=== PATIENT | male | born 1995 | race Caucasian/White ===

== ENCOUNTER 2021-03-02 19:46 | Emergency (ER) | payer SELFPAY ==
[~2021-03-02] VITALS: Ht 193 cm; Wt 87.5 kg
--- NOTE | 2021-03-02 20:39 | ED Cough/URI ---
General Chief Complaint: Cough/Cold/Flu Symptoms Stated Complaint: COUGH, CONGESTION Nursing Triage Note: TO ED VIA POV AND AMBULATORY TO ROOM 10 WITH C/O COUGH WITH HX OF BRONCHITIS. PT STATES CHILD HAS "COMMON COLD" AND HIS FAMILY WAS TESTED A WEEK AGO FOR COVID AND ALL WERE NEGATIVE. DENIES SOA. STATES HE TOOK DAYQUIL THIS AM. Source: patient Exam Limitations: no limitations History of Present Illness Date Seen by Provider: Mar 02, 2021 Time Seen by Provider: 20:34 Initial Comments Patient is a 26-year-old male who presents ED cough, chest congestion since S unday. Patient also reports fatigue and weakness. Denies of any wheezing, dropping of vomit, diarrhea. Had a negative outpatient Covid and influenza swab. He states family at home with similar symptoms. Denies fever at home. Has been using zbul-dmb-gxejavs cough medication to help with his cough. He states he has a history of bronchitis with pneumonia. He states this feels like bronchitis typically gets worse and develops pneumonia. Patient has been using inhaler at home with improvement. Denies history of asthma, smoking, heart disease. Allergies and Home Medications Allergies Coded Allergies: Penicillins (Verified Allergy, Unknown, 03/02/21) adhesive (Verified Allergy, Unknown, 03/02/21) Patient Home Medication List Home Medication List Reviewed: Yes Doxycycline Monohydrate (Doxycycline Monohydrate) 100 Mg Capsule, 100 MG PO BID Prescribed by: MARGARET MEDEROS on 03/02/212040 Review of Systems Review of Systems Constitutional: see HPI, malaise, weakness EENTM: No eye pain, No mouth pain, No throat pain, No throat swelling Respiratory: cough Cardiovascular: see HPI; No chest pain Gastrointestinal: No abdominal pain, No constipation, No diarrhea Musculoskeletal: No see HPI, No back pain, No gout Skin: No see HPI, No change in color, No change in hair/nails Psychiatric/Neurological: Denies See HPI All Other Systems Reviewed Negative Unless Noted: Yes Past Vgzdbod-Rrivzm-Llkogp Hx Patient Social History Tobacco Use?: Yes Substance use?: No Alcohol Use?: No Immunizations Up To Date COVID19 Vaccine Spare Parts Clerk: NO VAX Past Medical History Surgery/Hospitalization HX: HX: TYPE 1 DM SX: ABSCESS REMOVED FROM THROAT Physical Exam Vital Signs - First Documented 03/02/21 20:05 Temp 37.5 Pulse 108 Resp 16 B/P (MAP) 158/83 (108) Pulse Ox 98 O2 Delivery Room Air Capillary Refill : Less Than 3 Seconds Height: '" Weight: lbs. oz. kg; 23.00 BMI Method: General Appearance: WD/WN, no apparent distress Eyes: Bilateral Eye Normal Inspection, Bilateral Eye PERRL, Bilateral Eye EOMI HEENT: PERRL/EOMI, normal ENT inspection, TMs normal, pharynx normal Neck: non-tender, supple Respiratory: chest non-tender, lungs clear, normal breath sounds Cardiovascular: normal peripheral pulses, regular rate, rhythm, no edema, no gallop Gastrointestinal: normal bowel sounds, non tender, soft Extremities: normal range of motion, non-tender, normal inspection Skin: normal color, warm/dry Progress/Results/Core Measures Suspected Sepsis SIRS Temperature: Pulse: 108 Respiratory Rate: 16 Blood Pressure 158 /83 Mean: 108 Results/Orders Vital Signs/I&O 03/02/21 20:05 Temp 37.5 Pulse 108 Resp 16 B/P (MAP) 158/83 (108) Pulse Ox 98 O2 Delivery Room Air Capillary Refill : Less Than 3 Seconds Blood Pressure Mean: 108 Departure Communication (Admissions) Patient with URI symptoms since Saturday. Patient had a negative Covid. Did offered to reswab patient refused. Patient afebrile. Vital signs stable. He states he has a history of bronchitis resulting in pneumonia. Patient exam otherwise benign. Lung sounds clear bilateral. I do feel like this is likely a viral URI. Will discharge with doxycycline if symptoms worse. He has been using inhaler at home with history improvement. No notable wheezing noted on exam. X-ray was held at this time. If coughing progress or worsen may consider the doxycycline or follow-up chest x-ray. Return precaution were discussed with patient. Impression Primary Impression: Upper respiratory infection Disposition: HOME, SELF-CARE Condition: Improved Departure-Patient Inst. Decision time for Depature: 20:38 Patient Instructions: VIRAL SYNDROME Add. Discharge Instructions: If worsening symptoms recommend taken doxycycline. Appears to be viral at this time continue with inhaler at home. Purq-kpv-rkpgmps cough medication. All discharge instructions reviewed with patient and/or family. Voiced understanding. Scripts Doxycycline Monohydrate (Doxycycline Monohydrate) 100 Mg Capsule 100 MG PO BID, #14 CAP Prov: NAT RUIZ 03/02/21 NAT RUIZ Mar 02, 2021 20:39
[2021-03-02] MEDS ORDERED: DOXY-311 PO (20:41)
[2021-03-02 20:46] VITALS: BP 151/78
== END 2021-03-02 20:46 | disposition home or self-care (01) ==
LOC: ER 19:50
DX: J06.9 Acute upper respiratory infection, unspecified (principal); Z72.0 Tobacco use; Z20.822 Contact with and (suspected) exposure to COVID-19
CPT/HCPCS: 99281

== ENCOUNTER 2021-04-03 20:32 | Emergency (ER) | payer SELFPAY ==
[~2021-04-03] VITALS: Ht 190.5 cm; Wt 86.1 kg
[~2021-04-03 20:32] MED LIST: DOXY-311 PO
[2021-04-03] MEDS ORDERED: LACTATED RINGERS 1,000 ML IV ONE (20:45)
[2021-04-03 20:51] LABS: HEMATOCRIT 43 % (40-54); HEMOGLOBIN 14.8 g/dL (13.3-17.7); MEAN CORPUSCULAR HEMOGLOBIN 32 pg (25-34); MEAN CORPUSCULAR HGB CONC 35 g/dL (32-36); MEAN CORPUSCULAR VOLUME 92 fL (80-99); MEAN PLATELET VOLUME 9.1 fL (9.0-12.2); PLATELET COUNT 289 10^3/uL (130-400); WHITE BLOOD COUNT 5.6 10^3/uL (4.3-11.0)
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
[2021-04-03 21:03] LABS: CHLORIDE 101 MMOL/L (98-107); SODIUM 136 MMOL/L (135-145)
[2021-04-03 21:04] LABS: ALBUMIN 3.7 GM/DL (3.2-4.5); CALCIUM 8.7 MG/DL (8.5-10.1)
[2021-04-03 21:06] LABS: GLUCOSE 293 MG/DL (70-105); TOTAL PROTEIN 6.3 GM/DL (6.4-8.2)
[2021-04-03 21:07] LABS: BILIRUBIN,TOTAL 0.6 MG/DL (0.1-1.0); CARBON DIOXIDE 19 MMOL/L (21-32); FIBRIN DEGRADATION PRODUCTS 2.92 UG/ML (0.00-0.49); PROTHROMBIN TIME PATIENT 13.4 SEC (12.2-14.7)
[2021-04-03 21:09] LABS: ALKALINE PHOSPHATASE 102 U/L (40-136); PHOSPHORUS 3.2 MG/DL (2.3-4.7)
[2021-04-03 21:10] LABS: CREATININE SERUM 1.04 MG/DL (0.60-1.30); GFR ESTIMATED 88
[2021-04-03 21:11] LABS: BILIRUBIN,DIRECT 0.2 MG/DL (0.0-0.3); BILIRUBIN,INDIRECT 0.4 MG/DL; BUN/CREATININE RATIO 17
[2021-04-03 21:13] LABS: ALANINE AMINOTRANSFERASE 510 U/L (0-55); CREATINE KINASE 126 U/L (30-200); MAGNESIUM 1.9 MG/DL (1.6-2.4)
[2021-04-03] MEDS ORDERED: NS 100 ML (IVPB) BAG IV ONE (21:30)
[2021-04-03] MEDS ORDERED: IOHEXOL 350 MG/ML 100 ML (OMNIPAQUE 350) VIAL IV ONE (21:30)
[2021-04-03] MEDS ORDERED: HOLD METFORMIN - RECEIVED CONTRAST 20 ML VIAL IV SCH (21:30)
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
[2021-04-03] MEDS ORDERED: fentaNYL INJ 100 MCG/2 ML AMP IVP ONE ×2 (22:00→22:45)
[2021-04-03 22:14] LABS: BILIRUBIN,URINE NEGATIVE (NEGATIVE); CLARITY,URINE CLEAR; COLOR,URINE YELLOW; GLUCOSE, URINE (UA) 3+ (NEGATIVE); KETONES,URINE TRACE (NEGATIVE); LEUKOCYTE ESTERASE ,URINE NEGATIVE (NEGATIVE); NITRITE,URINE NEGATIVE (NEGATIVE); PROTEIN,URINE 1+ (NEGATIVE)
[2021-04-03 22:21] LABS: BACTERIA,URINE TRACE /HPF; RBC,URINE 0-2 /HPF; SQUAMOUS EPITHELIAL CELL,UR RARE /HPF
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
[2021-04-03 22:25] LABS: AMPHETAMINE SCREEN, URINE NEGATIVE (NEGATIVE); BARBITURATE SCREEN URINE NEGATIVE (NEGATIVE); BENZODIAZEPINES SCREEN URINE NEGATIVE (NEGATIVE); CANNABINOID SCREEN, URINE POSITIVE (NEGATIVE); COCAINE SCREEN URINE NEGATIVE (NEGATIVE); METHADONE STAT NEGATIVE (NEGATIVE); METHAMPHETAMINE SCREEN URINE S NEGATIVE (NEGATIVE); OPIATE SCREEN URINE NEGATIVE (NEGATIVE); OXYCODONE STAT NEGATIVE (NEGATIVE); PROPOXYPHENE STAT NEGATIVE (NEGATIVE); TRICYCLIC ANTIDEPRESSANTS SCRE NEGATIVE (NEGATIVE)
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
[2021-04-03] MEDS ORDERED: NS IV 1000 ML 1,000 ML IV SCH (22:45)
[2021-04-04] MEDS ORDERED: inSUlin (REGULAR) HUMAN 1 UNIT/0.01 ML (CHARGE PER UNIT) IV ONE
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
[2021-04-04] MEDS ORDERED: inSUlin (REGULAR) HUMAN 1 UNIT/0.01 ML (CHARGE PER UNIT) IV SCH ×2 (00:30→06:00)
[2021-04-04] MEDS ORDERED: CYCL10TA25 PO (00:57)
[2021-04-04] MEDS ORDERED: OXYC1TAB11 PO (00:57)
[2021-04-04] MEDS ORDERED: RX-OXYCODONE/APAP 5-325 MG #4 TAB PK PO PRN (01:00)
[2021-04-04] MEDS ORDERED: CLIN-144 PO (01:02)
[2021-04-04 03:50] VITALS: BP 138/79
== END 2021-04-04 01:24 | disposition home or self-care (01) ==
LOC: EDUNIT# 20:32 → ER 20:33
DX: S22.42XA Multiple fractures of ribs, left side, initial encounter for closed fracture (principal); S40.012A Contusion of left shoulder, initial encounter; S70.02XA Contusion of left hip, initial encounter; S27.321A Contusion of lung, unilateral, initial encounter; S50.02XA Contusion of left elbow, initial encounter; S00.512A Abrasion of oral cavity, initial encounter; S30.811A Abrasion of abdominal wall, initial encounter; S20.91XA Abrasion of unspecified parts of thorax, initial encounter; E10.9 Type 1 diabetes mellitus without complications; R94.5 Abnormal results of liver function studies; F12.90 Cannabis use, unspecified, uncomplicated; F17.210 Nicotine dependence, cigarettes, uncomplicated; V89.2XXA Person injured in unspecified motor-vehicle accident, traffic, initial encounter
CPT/HCPCS: 70450; 70486; 71045; 71260; 72125; 72128; 72131; 72170; 73030; 73502; 74177; 80048; 80076; 80306; 81000; 82550; 82947 ×2; 83605; 83735; 84100; 85027; 85379; 85384; 85610; 85730; 86850; 86900; 86901; 94664 ×2; 96374; 96375; 96376; 99284; G0480; 36415; 80320